=== PATIENT | male | born 1955 | race Asian ===

== ENCOUNTER 2020-09-27 17:43 | Emergency (ER) | payer OTHER ==
[~2020-09-27] VITALS: Ht 170.2 cm; Wt 73.0 kg
[2020-09-27 18:54] LABS: CALCIUM 8.3 mg/dL (8.5-10.1); CARBON DIOXIDE 25.3 mmol/L (21-32); CHLORIDE SERUM 104 mmol/L (98-107); CREATININE SERUM 0.9 mg/dL (0.7-1.3); GFR1 > 60 mL/min; GLUCOSE SERUM 133 mg/dL (74-106); PLATELET COUNT 202 x10^3mcL (152-348); POTASSIUM SERUM 3.4 mmol/L (3.5-5.1); RED CELL DISTRIBUTION WIDTH 13.5 % (12.1-16.2); SODIUM SERUM 139 mmol/L (136-145)
[2020-09-27 18:56] LABS: BASOPHIL % 0.3 % (0.2-1.5)
[2020-09-27 18:59] LABS: ALBUMIN 3.8 g/dL (3.4-5.0); ALKALINE PHOSPHATASE 78 U/L (46-116); ALT/SGPT 20 U/L (16-63); AST/SGOT 18 U/L (15-37); BILIRUBIN TOTAL 0.4 mg/dL (0.20-1.00); LIPASE 70 IU/L (73-393); TOTAL PROTEIN, SERUM 7.1 g/dL (6.4-8.2)
[2020-09-28 00:21] VITALS: BP 120/72
== END 2020-09-28 00:21 | disposition home or self-care (01) ==
LOC: ED 17:43
PROVIDERS: Emergency Medicine
DX: I49.9 Cardiac arrhythmia, unspecified (principal); F17.210 Nicotine dependence, cigarettes, uncomplicated; J44.9 Chronic obstructive pulmonary disease, unspecified; J86.9 Pyothorax without fistula
CPT/HCPCS: 83880; 99406; J2405; J3490; J7030